=== PATIENT | male | born 1985 | race African-American/Black ===

== ENCOUNTER 2019-11-13 21:26 | Emergency (ER) | payer OTHER ==
[~2019-11-13] VITALS: Ht 188 cm; Wt 113.4 kg
[2019-11-13 21:26] VITALS: BP 150/86
== END 2019-11-13 23:08 | disposition home or self-care (01) ==
LOC: ER 21:26
DX: S62.355A Nondisplaced fracture of shaft of fourth metacarpal bone, left hand, initial encounter for closed fracture (principal); X58.XXXA Exposure to other specified factors, initial encounter; Y93.89 Activity, other specified; Y92.89 Other specified places as the place of occurrence of the external cause; Y99.8 Other external cause status
CPT/HCPCS: 73130-TC